=== PATIENT | male | born 1950 | race Hispanic/Latino ===

== ENCOUNTER → 2018-06-02 | Outpatient (CLI) | payer OTHER | END | disposition home or self-care (01) | LOC: OIH 13:52 | PROVIDERS: ATTEND Internal Medicine | DX: I10 Essential (primary) hypertension (principal); I70.0 Atherosclerosis of aorta | CPT/HCPCS: 71046 ==

== ENCOUNTER → 2019-05-27 | Outpatient (CLI) | payer OTHER | END | disposition home or self-care (01) | LOC: OIH 07:40 | PROVIDERS: ATTEND Internal Medicine | DX: I10 Essential (primary) hypertension (principal) | CPT/HCPCS: 71045 ==

== ENCOUNTER 2024-10-21 06:46 | Day surgery (SDC) | payer OTHER ==
[2024-10-19 10:38] LABS: BASOPHILS # (AUTO) 0.04 K/uL (0.00-0.20); BASOPHILS % (AUTO) 0.5 % (0.0-5.0); EOSINOPHILS # (AUTO) 0.34 K/uL (0.00-0.70); EOSINOPHILS % (AUTO) 3.9 % (0.0-8.0); HEMATOCRIT 43.3 % (42-54); IMMATURE GRANULOCYTE ABSOLUTE 0.02 K/uL (0-1); LYMPHOCYTES # (AUTO) 2.5 K/uL (1.0-4.8); LYMPHOCYTES % (AUTO) 28.5 % (21.0-51.0); MEAN CORPUSCULAR HEMOGLOBIN 29.8 pg (27.0-33.0); MEAN CORPUSCULAR HGB CONC 33.7 g/dL (32.0-36.0); MEAN CORPUSCULAR VOLUME 88.4 fL (79-99); MONOCYTES # (AUTO) 0.5 K/uL (0.1-1.0); MONOCYTES % (AUTO) 5.3 % (3.0-13.0); NEUTROPHILS # (AUTO) 5.3 K/uL (1.8-7.7); NEUTROPHILS % (AUTO) 61.6 % (40.0-77.0); PLATELET COUNT (AUTO) 215 K/uL (130-400); RED CELL DISTRIBUTION WIDTH 13.3 % (11.0-15.5); WHITE BLOOD COUNT (AUTO) 8.6 K/uL (4.8-10.8)
[2024-10-19 10:53] LABS: PROTHROMBIN TIME 10.6 SEC (9.6-11.6)
[2024-10-19 10:55] LABS: PARTIAL THROMBOPLASTIN TIME 27.6 SEC (26.3-35.5)
[2024-10-19 10:56] LABS: BILIRUBIN,TOTAL 0.6 mg/dL (0.2-1.0); CREATININE 1.1 mg/dL (0.5-1.3); POTASSIUM 4.8 mmol/L (3.5-5.1); TOTAL PROTEIN, SERUM 6.9 g/dL (6.0-8.3)
--- NOTE | 2024-10-19 12:05 | EKG ---
Formerly [facility] Test Date: 2024-10-19 Test Time: 10:14:19 Pat Name: JUAN A TELLEZ Department: ENDO Room: [facility] Gender: M Classroom Coordinator: [id number] : 1950 Requested By: ESTEBAN MANCUSO Order Number: [id number] Reading MD: Tolu Regalado Measurements Intervals [place] Rate: 67 P: 26 [place]: 161 QRS: -16 QRSD: 91 T: 30 QT: 419 QTc: 443 Interpretive Statements Sinus rhythm No previous ECG available for comparison Electronically Signed On 10-21-2024 10:09:11 CDT by Tolu Regalado Please click the below link to view image of tracing.
[2024-10-21] VITALS (15 sets, daily range): BP systolic 113–150; BP diastolic 56–75; PULSE 64–82; RESP 14–20; TEMP 97.7–98.4
[~2024-10-21 06:46] MED LIST: ATOR40TA71 PO; BUPR-49 PO; CENTRUM PO; CETI10CA5 PO; FINA5TAB41 PO; GUAIFENESIN PO; METF-444 PO; PRESERVISION PO; RESM100T PO; TAMS-55 PO; TELM1TAB88 PO
[2024-10-21] MEDS: 0.9%NACL 1000ML 1,000 ML IV ONE (07:42)
[2024-10-21] MEDS: ceFAZolin SODIUM 2 GM VIAL ONE (07:42)
[2024-10-21] MEDS ORDERED: LIDOCAINE 1%-EPI 1:100,000 20 ML VIAL ONE (07:46)
[2024-10-21] MEDS ORDERED: BUPIvacaine/PF 0.25% 30ML VIAL IJ ONE (07:46)
[2024-10-21] MEDS ORDERED: ALBUHFA IH (07:48)
[2024-10-21] MEDS ORDERED: TIOT4MIS8 IH (07:48)
[2024-10-21] MEDS ORDERED: LIDOCAINE PF 100MG/5ML (2%) SYRINGE 5ML ONE (08:24)
[2024-10-21] MEDS ORDERED: proPOFol 10 MG/ML 20ML VIAL IV ONE (08:24)
[2024-10-21] MEDS ORDERED: MIDAZOLAM HCL 1 MG/ML 2ML VIAL ONE (08:52)
[2024-10-21] MEDS: LIDOCAINE 1%-EPI 1:100,000 20 ML VIAL IJ ONE (09:39)
[2024-10-21] MEDS ORDERED: LIDOCAINE HCL 2% PF 20 ML JEL DISP.SYRIN MM ONE (09:45)
--- NOTE | 2024-10-21 09:58 | OP ---
Operative Note: DATE OF PROCEDURE: 10/21/24 SURGEON: MALAIKA MOTA MD MONUMENT SETTER: [None] ANESTHESIA: [General anesthesia] ANESTHESIOLOGIST/GEOSPATIAL INTELLIGENCE ANALYST: [] PREOPERATIVE DIAGNOSIS: [History of colonic polyps. Anal pain.] POSTOPERATIVE DIAGNOSIS: [Colon polyps. Diverticulosis. Anal fissure.] SYNOPSIS: [1 polyp in the ascending colon. Two polyps in the sigmoid colon. Two polyps in the rectum. Posterior midline anal fissure. Diverticulosis of the sigmoid colon.] PROCEDURE: [Lateral internal sphincterotomy. Colonoscopy with biopsy.] ESTIMATED BLOOD LOSS: [Minimal] INDICATIONS: [The patient is a very pleasant 74-year-old male presents to the office with anal pain and is also due for his colonoscopy due to history of colonic polyps. He was offered operative management. The complications, risks alternatives and benefits were discussed with him and his in detail. Risks include infection, bleeding, injury to sphincter complex causing incontinence, need for further procedures, recurrence of disease, poor bowel function, perforation of the colon and need for another endoscopy. All questions were answered to their satisfaction and they all wished to proceed with the operation.] DESCRIPTION OF PROCEDURE: [The patient is brought to the operating theater and placed supine on the operating table. After appropriate general anesthesia was administered the patient was placed in the dorsal lithotomy position. Perineum was prepped and draped in appropriate sterile surgical fashion. A colonoscope was inserted and passed to the cecum without difficulty. Colonoscope was then withdrawn taking over 8 minutes. There was multiple polyps that were removed. There was 1 polyp in the ascending colon, 2 polyps in the sigmoid colon polyp, and 2 polyps in the rectum. All the polyps were less than 5 mm in size. They were removed with cold biopsy forceps. The perineum was re-prepped. An anoscope was inserted after digital rectal exam was performed. 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 He has a posterior midline anal fissure. Attention was drawn to the left lateral anus were the intersphincteric groove was identified. A Itmann blade was inserted into the intersphincteric groove and the internal sphincter was cut to the apex of the fissure. The defect in the skin was closed with a chromic suture. Excellent hemostasis was achieved. There were no complications. The instrument, sponge and needle count reported as correct x2 by nursing staff.] MALAIKA MOTA MD Oct 21, 2024 09:58
[2024-10-21] MEDS: morPHINE 2 MG SYG ONE ×2 (10:09→10:21)
--- NOTE | 2024-10-21 11:17 | NUR ---
BOTH PT AND GIVEN VERBAL AND WRITTEN DISCHARGE INSTRUCTIONS. IV REMOVED SITE ASYMPTOMATIC PT TAKEN OUT VIA WHEELCHAIR DRIVING
== END 2024-10-21 11:22 | disposition home or self-care (01) ==
LOC: DAH 06:46
PROVIDERS: ATTEND Surgery
DX: K60.2 Anal fissure, unspecified (principal); D12.2 Benign neoplasm of ascending colon; K92.1 Melena; K57.30 Diverticulosis of large intestine without perforation or abscess without bleeding; K62.4 Stenosis of anus and rectum; I10 Essential (primary) hypertension; E78.5 Hyperlipidemia, unspecified; J44.9 Chronic obstructive pulmonary disease, unspecified; F41.9 Anxiety disorder, unspecified; D12.6 Benign neoplasm of colon, unspecified; G47.33 Obstructive sleep apnea (adult) (pediatric); F32.A Depression, unspecified; M19.90 Unspecified osteoarthritis, unspecified site; Z90.89 Acquired absence of other organs; Z86.0100 Personal history of colon polyps, unspecified; Z79.84 Long term (current) use of oral hypoglycemic drugs; Z79.899 Other long term (current) drug therapy
CPT/HCPCS: 80053; 85025; 85610; 85730; 36415; 93005; 46080; 82948 ×2; A4663; J7120; A4649 ×2; J3490 ×2; J2270 ×2; J7030; J0665 ×2; J2003; J2250; J2704; J0690; A4930; A4215; A4213; A4222; A4221; A4216; A4223 ×2; A4600; 45380